=== PATIENT | female | born 1960 | race Caucasian/White ===

== ENCOUNTER 2023-05-27 08:50 | Outpatient (CLI) | payer OTHER ==
[~2023-05-27] VITALS: Ht 170.2 cm; Wt 64.2 kg
[2023-05-27] MEDS ORDERED: LEVO75CA5 PO (15:08)
[2023-05-27] MEDS ORDERED: SERT-414 PO (15:08)
[2023-05-27] MEDS ORDERED: ATOR20TA66 PO (15:08)
== END 2023-05-27 15:16 | disposition home or self-care (01) ==
LOC: PREOP 08:50
PROVIDERS: ATTEND Surgery
DX: Z01.818 Encounter for other preprocedural examination (principal)

== ENCOUNTER 2023-06-06 10:21 | Day surgery (SDC) | payer OTHER ==
[~2023-06-06] VITALS: Ht 170.2 cm; Wt 64.2 kg
[~2023-06-06 10:21] MED LIST: ATOR20TA66 PO; LEVO75CA5 PO; SERT-414 PO
[2023-06-06] MEDS ORDERED: LACTATED RINGERS 1,000 ML IV STA (10:24)
[2023-06-06 10:50] VITALS: BP 104/61
--- NOTE | 2023-06-06 10:51 | Progress Note-Pre Operative ---
Pre-Operative Progress Note Date of Available H&P: May 26, 2023 Date H&P Reviewed: Jun 06, 2023 Time H&P Reviewed: 10:50 History & Physical: H&P Reviewed, Patient Examed, No changes noted Pre-Operative Diagnosis: Hx of polyps, Hx of appendiceal CA ALLYSON WALKER DO Jun 06, 2023 10:51
[2023-06-06] MEDS ORDERED: PROPOFOL INJECTION 50 ML IV ONE (11:01)
[2023-06-06] MEDS ORDERED: MIDAZOLAM 2 MG/2 ML (VERSED) VIAL ONE (11:01)
[2023-06-06] MEDS ORDERED: proPOfol 200 MG/20 ML (DIPRIVAN) VIAL IV ONE (11:24)
[2023-06-06 11:40] VITALS: BP 87/51
[2023-06-06 11:45] VITALS: BP 84/52
--- NOTE | 2023-06-06 11:45 | Anesthesia-General Post-Op ---
MAC Patient Condition Mental Status/LOC: Same as Preop Cardiovascular: Satisfactory Nausea/Vomiting: Absent Respiratory: Satisfactory Pain: Controlled Complications: Absent Post Op Complications Complications None Follow Up Care/Instructions Patient Instructions None needed. Anesthesiology Discharge Order Discharge Order Patient is doing well, no complaints, stable vital signs, no apparent adverse anesthesia problems. No complications reported per nursing. DARVIN KOCH CRNA Jun 06, 2023 11:45
--- NOTE | 2023-06-06 11:45 | Endoscopy Discharge Instruct ---
Endo Procedure/Findings Findings 1.: Polyp 2.: Diverticulosis 3.: Internal Hemorrhoids Discharge Instructions - Activity: You might feel a little sleepy until tomorrow. This is due to the medicine you received to relax you. Until tomorrow, you should: NOT drive a car, operate machinery or power tools. NOT drink any alcoholic beverages. NOT make any important decisions or sign importortant papers. Do not return to work until tomorrow, unless otherwise instructed. Resume previous activities tomorrow. Diet: Start by taking liquids. If you tolerate liquids, advance to solid food. 1.: Colonscopy in 5 years Notify Physician - If you experience excessive bleeding, unusual abdominal pain, fever, or chest pain, contact your doctor immediately. Follow-Up: Other Follow up in my office in one week ALLYSON WALKER DO Jun 06, 2023 11:45
--- NOTE | 2023-06-06 11:45 | Progress Note-Post Operative ---
Post-Operative Progess Note Surgeon (s)/Medical Technologist Prn (s) Surgeon ALLYSON WALKER DO Medical Technologist Prn: Nabil Isaac, MSIII Pre-Operative Diagnosis Hx of polyps, Hx of appendiceal CA Post-Operative Diagnosis Polyps diverticula int hemorrhoids Procedure & Operative Findings Date of Procedure 06/06/23 Procedure Performed/Findings Colonoscopy with hot biopsy PROCEDURE NOTE: After informed consent was obtained, the patient was brought to the endoscopy suite, placed in bed in left lateral decubitus position. She was administered IV sedation by the [employer] DAT[employer] PROGRAMMER who then monitored her vitals the entire time, heart rate, blood pressure and pulse ox and the scope was inserted, pushed all the way to about 130 cm and pushed into the cecum, took a picture of appendiceal orifice and noted the ileocecal valve. Then slowly withdrew the scope insufflating to look circumferentially at the estrada starting in the cecum and up the ascending colon. Found a small polyp here and elected to remove it with hot biopsy. Continued to the hepatic flexure, then down the transverse colon to the splenic flexure and into the descending colon. I found another polyp here and did another hot biopsy. Finally, down the sigmoid and then into the rectum. I found one more small flat polyp in the rectum and also removed it with a hot biopsy. In the rectal vault, I retroflexed the scope and took a picture of the internal hemorrhoids. I had also seen a couple of small diverticula during the procedure; did not get any photos. The patient tolerated the procedure. She was recovered in endoscopy suite. Recommended for repeat colonoscopy in 5 years. Anesthesia Type IV sedation by [employer] DAT[employer] PROGRAMMER Estimated Blood Loss Estimated blood loss (mL): scant Specimens/Packing Specimens Removed asc colon polyp desc colon polyp rectal polyp ALLYSON WALKER DO Jun 06, 2023 11:45
[2023-06-06 11:50] VITALS: BP 94/60
[2023-06-06 11:55] VITALS: BP 85/59
[2023-06-06 12:06] VITALS: BP 85/59
== END 2023-06-06 12:16 | disposition home or self-care (01) ==
LOC: ENDO 10:21
PROVIDERS: ATTEND Surgery
DX: D12.2 Benign neoplasm of ascending colon (principal); D12.4 Benign neoplasm of descending colon; K62.1 Rectal polyp; K57.30 Diverticulosis of large intestine without perforation or abscess without bleeding; K64.8 Other hemorrhoids; Z85.038 Personal history of other malignant neoplasm of large intestine; Z85.42 Personal history of malignant neoplasm of other parts of uterus